=== PATIENT | male | born 1975 | race Caucasian/White ===

== ENCOUNTER 2025-06-08 09:36 | Emergency (ER) | payer OTHER ==
[~2025-06-08] VITALS: Ht 177.8 cm; Wt 91.4 kg
[~2025-06-08 09:36] MED LIST: CLEOCIN HCL300 MG PO; HYDROCODON-ACE1 EA10 PO; IBUPROFEN600 MG PO; POTASSIUM CHLO10 MEQ PO; PREDNISONE20 MG PO
[2025-06-08] MEDS ORDERED: MONDOXYNE NL100 MG PO (09:50)
[2025-06-08] MEDS ORDERED: WELLBUTRIN SR150 MG PO (09:50)
[2025-06-08 10:11] LABS: BASOPHILS 1.4 % (0.2-1.2); EOSINOPHILS 6.4 % (0.8-7.0); LYMPHOCYTES 26.6 % (21.8-53.1); MCH 30.3 PG (25.7-32.2); MCHC 33.6 g/dL (32.3-36.5); MCV 90.1 fL (79.0-92.2); MONOCYTES 5.9 % (5.3-12.2); NEUTROPHILS 59.0 % (34.0-67.9); RBC 4.95 M/uL (4.63-6.08)
[2025-06-08 10:27] LABS: ALT (SGPT) 41.0 U/L (14-59); AST (SGOT) 21.0 U/L (15-37); GLOMERULAR FILTRATION RATE,EST 101.0 mL/min (>60); PROTEIN, TOTAL 7.0 g/dL (6.4-8.2); UREA NITROGEN 9.0 mg/dL (7-18)
[2025-06-08 11:15] LABS: ERYTHROCYTE SEDIMENTATION RATE 3
[2025-06-08 12:20] VITALS: BP 132/89
== END 2025-06-08 12:23 | disposition home or self-care (01) ==
LOC: ED 09:36
PROVIDERS: Emergency Medicine
DX: M54.42 Lumbago with sciatica, left side (principal); M54.41 Lumbago with sciatica, right side; F17.200 Nicotine dependence, unspecified, uncomplicated; I10 Essential (primary) hypertension
CPT/HCPCS: 36415; 72130; 72133; 80053; 85025; 85651; 86140; 99284-25; Q9967